=== PATIENT | male | born 1950 | race Caucasian/White ===

== ENCOUNTER 2022-11-21 08:42 | Outpatient (CLI) | payer MEDICARE | END 2022-11-21 08:43 | disposition home or self-care (01) | LOC: CSHMRI 08:42 | PROVIDERS: ATTEND Orthopaedic Surgery Hand Surgery | DX: M50.20 Other cervical disc displacement, unspecified cervical region (principal); S63.592A Other specified sprain of left wrist, initial encounter; M47.812 Spondylosis without myelopathy or radiculopathy, cervical region; M24.232 Disorder of ligament, left wrist; M67.834 Other specified disorders of tendon, left wrist | CPT/HCPCS: 72141 ==